=== PATIENT | female | born 1960 | race Caucasian/White ===

== ENCOUNTER 2017-12-30 12:15 | Day surgery (SDC) | payer OTHER ==
[~2017-12-30] VITALS: Ht 162.6 cm; Wt 69.0 kg
[~2017-12-30 12:15] MED LIST: ALIS150T PO; ASPI81CH; ATOR10; ATOR20 PO; CLARITIN10 MG PO; CODACE30 PO; Cardura2 MG PO; Cortef20 MG PO; DESL5; DILT120; DILT180ER PO; Doxazosin Mesyla2 MG PO; ERGO50000 PO; FEXO180; FLUO20; FURO20 PO; Flovent Diskus50 MCG; Fludrocortison0.1 MG PO; GABA300 PO; HYDCOR10 PO; HYDR10 PO; Humalog100 UNIT/1 ID; INSUL; MAGOXI400 PO; MEDR5 PO; NITR100CA PO; Neurontin 100100 MG GT; PROM25 PO; Prozac20 MG PO; Prozac40 MG PO; RAMI2.5; TRAN2; TRAZ100 PO
[2017-12-30] MEDS ORDERED: ASPI81CH PO (13:14)
[2017-12-30] MEDS ORDERED: SOLU CORTEF INJ (13:16)
[2017-12-30] MEDS ORDERED: Glucagon Emergen1 MG INJ (13:16)
== END 2017-12-30 17:37 | disposition home or self-care (01) ==
LOC: ORSCSDS 12:15
PROVIDERS: Orthopaedic Surgery
PROC: 0LN80ZZ Release Left Hand Tendon, Open Approach (ICD-10-PCS; principal; 2017-12-30 13:30)
PROC: 0JNK0ZZ Release Left Hand Subcutaneous Tissue and Fascia, Open Approach (ICD-10-PCS; principal; 2017-12-30 13:30)
DX: M72.0 Palmar fascial fibromatosis [Dupuytren] (principal); I10 Essential (primary) hypertension; E10.8 Type 1 diabetes mellitus with unspecified complications; E27.1 Primary adrenocortical insufficiency; Z87.891 Personal history of nicotine dependence; Z79.4 Long term (current) use of insulin; Z79.899 Other long term (current) drug therapy
CPT/HCPCS: 82947; J0690; J2250; J2370; J3010; J7120

== ENCOUNTER 2018-04-14 14:15 | Emergency (ER) | payer OTHER ==
[~2018-04-14] VITALS: Ht 167.6 cm; Wt 72.6 kg
[~2018-04-14 14:15] MED LIST changes: +ASPI81CH PO; +Glucagon Emergen1 MG INJ; +SOLU CORTEF INJ
[2018-04-14 14:53] LABS: BASOPHILS PERCENT AUTO 2 % (0-2); EOSINOPHILS ABSOLUTE AUTO 0.21 K/mm3 (0.00-0.68); EOSINOPHILS PERCENT AUTO 3 % (0-6); Hematocrit 36.1 % (33.0-51.0); Hemoglobin 13.2 g/dL (11.5-16.0); IMMATURE GRAN ABSOLUTE AUTO 0.01 K/mm3 (0.00-0.10); IMMATURE GRAN PERCENT AUTO 0 % (0-1); LYMPHOCYTES ABSOLUTE AUTO 1.94 K/mm3 (0.84-5.20); LYMPHOCYTES PERCENT AUTO 32 % (21-46); MONOCYTES ABSOLUTE AUTO 0.58 K/mm3 (0.16-1.47); MONOCYTES PERCENT AUTO 10 % (4-13); Mean Corpuscular HGB 32.3 pg (26.0-34.0); Mean Corpuscular HGB Conc 36.6 g/dL (31.5-36.5); Mean Corpuscular Volume 88 fL (80-100); Mean Platelet Volume 9.1 fL (9.1-12.4); NEUTROPHILS ABSOLUTE AUTO 3.27 K/mm3 (1.96-9.15); NEUTROPHILS PERCENT AUTO 54 % (41-73); Platelet Count 377 K/mm3 (150-400); RDW Coefficient Variation 11.4 % (11.7-14.2); RDW Standard Deviation 36.8 fL (35.1-46.3); Red Blood Cell Count 4.09 M/mm3 (3.80-5.20); White Blood Cell Count 6.11 K/mm3 (4.00-11.30)
[2018-04-14 15:21] LABS: Alanine Aminotransfer (ALT/SGP 27 U/L (12-78); Albumin, Blood 3.7 g/dL (3.4-5.0); Albumin/Globulin Ratio 0.9 (0.8-1.8); Alk Phos 106 U/L (50-136); Anion Gap 12 mmol/L (6-16); Aspartate Aminotrans (AST/SGOT 28 U/L (12-37); Bilirubin, Total 0.5 mg/dL (0.1-1.0); Blood Urea Nitrogen 20 mg/dL (8-24); Bun/Creatinine Ratio 29.3 (12.0-20.0); CO2, Blood 21 mmol/L (21-32); Calcium, Blood 9.1 mg/dL (8.5-10.1); Chloride, Blood 89 mmol/L (98-108); Creatinine, Blood 0.68 mg/dL (0.40-1.00); Globulin, Blood 4.3 g/dL (2.2-4.0); Glomerular Filtration Rate >60 (60-); Glucose, Blood 336 mg/dL (70-99); Potassium, Blood 4.1 mmol/L (3.5-5.5); Sodium, Blood 122 mmol/L (136-145)
[2018-04-14] MEDS ORDERED: Ativan1 MG PO (18:04)
== END 2018-04-14 18:40 | disposition home or self-care (01) ==
LOC: ER 14:15
PROVIDERS: Emergency Medicine
DX: F41.9 Anxiety disorder, unspecified (principal); E27.1 Primary adrenocortical insufficiency; I10 Essential (primary) hypertension; E11.9 Type 2 diabetes mellitus without complications; E03.9 Hypothyroidism, unspecified; F32.9 Major depressive disorder, single episode, unspecified; E78.00 Pure hypercholesterolemia, unspecified; Z88.6 Allergy status to analgesic agent; Z88.8 Allergy status to other drugs, medicaments and biological substances; Z88.5 Allergy status to narcotic agent; Z79.899 Other long term (current) drug therapy; Z79.4 Long term (current) use of insulin; Z79.82 Long term (current) use of aspirin; Z87.891 Personal history of nicotine dependence
CPT/HCPCS: 36415; 71046; 80053; 84484; 85025; 93005; 93010; 96361; 96374; 96375; 99285-25; J0360; J1720; J2060; J7030

== ENCOUNTER → 2018-07-07 | Outpatient (CLI) | payer OTHER ==
[~2018-07-07] MED LIST changes: +Ativan1 MG PO
[2018-07-07 08:26] LABS: BASOPHILS ABSOLUTE AUTO 0.09 K/mm3 (0.00-0.23); BASOPHILS PERCENT AUTO 2 % (0-2); EOSINOPHILS ABSOLUTE AUTO 0.26 K/mm3 (0.00-0.68); EOSINOPHILS PERCENT AUTO 5 % (0-6); Hematocrit 34.3 % (33.0-51.0); Hemoglobin 12.6 g/dL (11.5-16.0); IMMATURE GRAN ABSOLUTE AUTO 0.01 K/mm3 (0.00-0.10); IMMATURE GRAN PERCENT AUTO 0 % (0-1); LYMPHOCYTES ABSOLUTE AUTO 2.88 K/mm3 (0.84-5.20); LYMPHOCYTES PERCENT AUTO 51 % (21-46); MONOCYTES ABSOLUTE AUTO 0.56 K/mm3 (0.16-1.47); MONOCYTES PERCENT AUTO 10 % (4-13); Mean Corpuscular HGB 32.1 pg (26.0-34.0); Mean Corpuscular HGB Conc 36.7 g/dL (31.5-36.5); Mean Corpuscular Volume 87 fL (80-100); Mean Platelet Volume 9.5 fL (9.1-12.4); NEUTROPHILS ABSOLUTE AUTO 1.81 K/mm3 (1.96-9.15); NEUTROPHILS PERCENT AUTO 32 % (41-73); Platelet Count 340 K/mm3 (150-400); RDW Coefficient Variation 11.4 % (11.7-14.2); RDW Standard Deviation 36.9 fL (35.1-46.3); Red Blood Cell Count 3.93 M/mm3 (3.80-5.20); White Blood Cell Count 5.61 K/mm3 (4.00-11.30)
[2018-07-07 08:38] LABS: Alanine Aminotransfer (ALT/SGP 27 U/L (12-78); Albumin, Blood 3.6 g/dL (3.4-5.0); Albumin/Globulin Ratio 0.9 (0.8-1.8); Alk Phos 91 U/L (40-126); Anion Gap 9 mmol/L (6-16); Aspartate Aminotrans (AST/SGOT 24 U/L (12-37); Bilirubin, Total 0.3 mg/dL (0.1-1.0); Blood Urea Nitrogen 22 mg/dL (8-24); Bun/Creatinine Ratio 26.2 (12.0-20.0); CO2, Blood 27 mmol/L (21-32); Calcium, Blood 8.8 mg/dL (8.5-10.1); Chloride, Blood 88 mmol/L (98-108); Creatinine, Blood 0.84 mg/dL (0.40-1.00); Globulin, Blood 4.2 g/dL (2.2-4.0); Glomerular Filtration Rate >60 (60-); Glucose, Blood 88 mg/dL (70-99); Potassium, Blood 4.5 mmol/L (3.5-5.5); Sodium, Blood 124 mmol/L (136-145); Total Protein, Blood 7.8 g/dL (6.4-8.2)
== END | disposition home or self-care (01) ==
LOC: LAB SHORT 08:23 → LAB EV 08:23
PROVIDERS: Physician Assistant
DX: R11.2 Nausea with vomiting, unspecified (principal)
CPT/HCPCS: 80053; 83690; 85025; 87086

== ENCOUNTER 2020-05-01 18:31 | Emergency (ER) | payer OTHER ==
[~2020-05-01] VITALS: Ht 162.6 cm; Wt 70.3 kg
[~2020-05-01 18:31] MED LIST changes: -ASPI81CH PO; +Aspirin EC81 MG PO; +Glucagon Emergen1 MG IM; -Glucagon Emergen1 MG INJ; +ONDA4ODT MM; +SOLU CORTEF IM; -SOLU CORTEF INJ
[2020-05-01] MEDS ORDERED: HYDR10 PO (18:52)
[2020-05-01] MEDS ORDERED: HUMALOG100 UNIT/1 SC (18:54)
[2020-05-01] MEDS ORDERED: FUROSEMIDE20 MG PO (18:55)
[2020-05-01] MEDS ORDERED: FLUTICASONE PRO16 GM (18:55)
[2020-05-01] MEDS ORDERED: Hydrocortisone5 MG PO (18:56)
[2020-05-01] MEDS ORDERED: BASAGLAR K100 UNIT/1 SC (18:57)
[2020-05-01] MEDS ORDERED: LOSA25 PO (18:58)
[2020-05-01] MEDS ORDERED: Tiazac180 MG PO (19:01)
[2020-05-01] MEDS ORDERED: HYDCOR10 PO (19:05)
[2020-05-01 19:07] LABS: BASOPHILS ABSOLUTE AUTO 0.13 K/mm3 (0.00-0.23); BASOPHILS PERCENT AUTO 2 % (0-2); EOSINOPHILS ABSOLUTE AUTO 0.27 K/mm3 (0.00-0.68); EOSINOPHILS PERCENT AUTO 3 % (0-6); Hematocrit 32.6 % (33.0-51.0); Hemoglobin 11.4 g/dL (11.5-16.0); IMMATURE GRAN ABSOLUTE AUTO 0.02 K/mm3 (0.00-0.10); IMMATURE GRAN PERCENT AUTO 0 % (0-1); LYMPHOCYTES ABSOLUTE AUTO 3.05 K/mm3 (0.84-5.20); LYMPHOCYTES PERCENT AUTO 36 % (21-46); MONOCYTES ABSOLUTE AUTO 0.66 K/mm3 (0.16-1.47); MONOCYTES PERCENT AUTO 8 % (4-13); Mean Corpuscular HGB 31.5 pg (26.0-34.0); Mean Corpuscular Volume 90 fL (80-100); Mean Platelet Volume 9.3 fL (9.1-12.4); NEUTROPHILS ABSOLUTE AUTO 4.47 K/mm3 (1.96-9.15); NEUTROPHILS PERCENT AUTO 52 % (41-73); Platelet Count 382 K/mm3 (150-400); RDW Coefficient Variation 12.3 % (11.7-14.2); RDW Standard Deviation 40.4 fL (35.1-46.3); Red Blood Cell Count 3.62 M/mm3 (3.80-5.20)
[2020-05-01 19:35] LABS: Alanine Aminotransfer (ALT/SGP 33 U/L (12-78); Albumin, Blood 3.6 g/dL (3.4-5.0); Albumin/Globulin Ratio 0.9 (0.8-1.8); Alk Phos 73 U/L (50-136); Anion Gap 8 mmol/L (6-16); Aspartate Aminotrans (AST/SGOT 31 U/L (12-37); Bilirubin, Total 0.6 mg/dL (0.1-1.0); Blood Urea Nitrogen 14 mg/dL (8-24); Bun/Creatinine Ratio 22.9 (12.0-20.0); CO2, Blood 25 mmol/L (21-32); Calcium, Blood 8.7 mg/dL (8.5-10.1); Chloride, Blood 96 mmol/L (98-108); Creatinine, Blood 0.61 mg/dL (0.40-1.00); Globulin, Blood 3.8 g/dL (2.2-4.0); Glomerular Filtration Rate >60 (60-); Glucose, Blood 198 mg/dL (70-99); Potassium, Blood 3.7 mmol/L (3.5-5.5); Sodium, Blood 129 mmol/L (136-145); Total Protein, Blood 7.4 g/dL (6.4-8.2); Troponin I <0.015 ng/mL (0.000-0.040)
== END 2020-05-01 22:44 | disposition home or self-care (01) ==
LOC: ER 18:31
PROVIDERS: Emergency Medicine
DX: R07.9 Chest pain, unspecified (principal); R11.2 Nausea with vomiting, unspecified; I10 Essential (primary) hypertension; E11.9 Type 2 diabetes mellitus without complications; E03.9 Hypothyroidism, unspecified; F32.9 Major depressive disorder, single episode, unspecified; E78.00 Pure hypercholesterolemia, unspecified; Z88.8 Allergy status to other drugs, medicaments and biological substances; Z88.6 Allergy status to analgesic agent; Z88.5 Allergy status to narcotic agent; Z79.82 Long term (current) use of aspirin; Z79.4 Long term (current) use of insulin; Z79.899 Other long term (current) drug therapy; Z87.891 Personal history of nicotine dependence
CPT/HCPCS: 71046; 80053; 83880; 84484; 85025; 93005; 93010; 99285-25

== ENCOUNTER 2020-09-01 06:23 | Inpatient (IN) | payer OTHER ==
[~2020-09-01] VITALS: Ht 162.6 cm; Wt 65.3 kg
[~2020-09-01 06:23] MED LIST changes: +BASAGLAR K100 UNIT/1 SC; +FLUTICASONE PRO16 GM; +FUROSEMIDE20 MG PO; +HUMALOG100 UNIT/1 SC; +Hydrocortisone5 MG PO; +LOSA25 PO; +Tiazac180 MG PO
[2020-09-01 07:01] LABS: BASOPHILS ABSOLUTE AUTO 0.11 K/mm3 (0.00-0.23); BASOPHILS PERCENT AUTO 2 % (0-2); EOSINOPHILS PERCENT AUTO 6 % (0-6); Hematocrit 31.4 % (33.0-51.0); Hemoglobin 11.2 g/dL (11.5-16.0); IMMATURE GRAN ABSOLUTE AUTO 0.02 K/mm3 (0.00-0.10); IMMATURE GRAN PERCENT AUTO 0 % (0-1); LYMPHOCYTES ABSOLUTE AUTO 2.27 K/mm3 (0.84-5.20); LYMPHOCYTES PERCENT AUTO 32 % (21-46); MONOCYTES ABSOLUTE AUTO 0.61 K/mm3 (0.16-1.47); MONOCYTES PERCENT AUTO 9 % (4-13); Mean Corpuscular HGB 31.8 pg (26.0-34.0); Mean Corpuscular HGB Conc 35.7 g/dL (31.5-36.5); Mean Corpuscular Volume 89 fL (80-100); Mean Platelet Volume 9.3 fL (9.1-12.4); NEUTROPHILS ABSOLUTE AUTO 3.69 K/mm3 (1.96-9.15); NEUTROPHILS PERCENT AUTO 52 % (41-73); Platelet Count 382 K/mm3 (150-400); RDW Coefficient Variation 12.2 % (11.7-14.2); RDW Standard Deviation 39.6 fL (35.1-46.3); Red Blood Cell Count 3.52 M/mm3 (3.80-5.20)
[2020-09-01 07:19] LABS: Alanine Aminotransfer (ALT/SGP 24 U/L (12-78); Albumin, Blood 3.2 g/dL (3.4-5.0); Albumin/Globulin Ratio 0.8 (0.8-1.8); Alk Phos 72 U/L (50-136); Anion Gap 5 mmol/L (6-16); Aspartate Aminotrans (AST/SGOT 23 U/L (12-37); Bilirubin, Total 0.3 mg/dL (0.1-1.0); Blood Urea Nitrogen 13 mg/dL (8-24); Bun/Creatinine Ratio 23.5 (12.0-20.0); CO2, Blood 27 mmol/L (21-32); Calcium, Blood 8.6 mg/dL (8.5-10.1); Chloride, Blood 96 mmol/L (98-108); Creatinine, Blood 0.55 mg/dL (0.40-1.00); Globulin, Blood 3.9 g/dL (2.2-4.0); Glomerular Filtration Rate >60 (60-); Glucose, Blood 204 mg/dL (70-99); Potassium, Blood 3.8 mmol/L (3.5-5.5); Sodium, Blood 128 mmol/L (136-145); Total Protein, Blood 7.1 g/dL (6.4-8.2); Troponin I <0.015 ng/mL (0.000-0.040)
[2020-09-01 08:37] LABS: International Normalized Ratio 1.04; Prothrombin Time Results 11.1 Sec (9.7-11.5)
[2020-09-01 14:08] LABS: Influenza A, PCR NEGATIVE (NEGATIVE); Influenza B, PCR NEGATIVE (NEGATIVE); Resp Syncytial Virus, PCR NEGATIVE (NEGATIVE); SARS-Cov-2 (COVID-19) PCR, MMC NEGATIVE (NEGATIVE)
--- NOTE | 2020-09-01 17:25 | NUR ---
SHIFT SUMMARY PT ARRIVED FROM [facility] AT APPROXIMATELY 1615 AFTER HAVING A RAC STENT PLACED. TR BAND AND ARM BOARD IN PLACE; SCANT AMOUNT OF DRAINAGE AT THE SITE, BUT THE AMOUNT HAS NOT INCREASED SINCE ARRIVING IN PCU. PT DENIES CHEST PAIN AND DISCOMFORT. PT ON RA, VS STABLE, STRONG PULSES. PT ABLE TO WALK SBA TO THE BATHROOM. PT RESTING IN BED AT THIS TIME
--- NOTE | 2020-09-01 18:38 | NUR ---
CHEST PAIN PT REPORTED CHEST PRESSURE AT APPROXIMATELY 1740. BP WAS ELEVATED, PT ALSO REPORTED HAVING A HEADACHE. THE 1400 DOSE OF APRESOLINE WAS HELD PREVIOUSLY; DUE TO ELEVATED BP THE PT WAS GIVEN THE APRESOLINE. WHEN RETURING TO THE ROOM SEVERAL MINUTES LATER, PT REPORTED IT FEELING WORSE, RATING THE PAIN AT A 5. BP WAS STILL ELEVATED SO A SINGLE DOSE OF NITRO WAS GIVEN. PT'S BP DROPPED AND NO FURTHER NITRO WAS ADMINISTERED. PT REPORTED IT HELPING A LITTLE. THIS RN EXPLAINED THAT HOPEFULLY THE BP WOULD LEVEL OUT AND THE HEADACHE WOULD RESOLVE. BP WILL BE RECHECKED. THIS RN EXPLAINED THAT IF IT DID NOT RESOLVE WITH THE APRESOLINE AND NITRO THAT THE DOCTOR WOULD BE CALLED FOR ADDITIONAL MEDICATION SUCH PEPCID WHICH WAS REPORTED RESOLVING HER CHEST PAIN IN THE ER, PRIOR TO THE ANGIO
[2020-09-02 04:49] LABS: Hematocrit 31.3 % (33.0-51.0); Hemoglobin 10.9 g/dL (11.5-16.0); Mean Corpuscular HGB 31.5 pg (26.0-34.0); Mean Corpuscular HGB Conc 34.8 g/dL (31.5-36.5); Mean Corpuscular Volume 91 fL (80-100); Mean Platelet Volume 9.5 fL (9.1-12.4); Platelet Count 368 K/mm3 (150-400); RDW Coefficient Variation 12.3 % (11.7-14.2); RDW Standard Deviation 40.4 fL (35.1-46.3); Red Blood Cell Count 3.46 M/mm3 (3.80-5.20); White Blood Cell Count 5.44 K/mm3 (4.00-11.30)
[2020-09-02 05:47] LABS: Anion Gap 7 mmol/L (6-16); Blood Urea Nitrogen 10 mg/dL (8-24); Bun/Creatinine Ratio 16.8 (12.0-20.0); CO2, Blood 25 mmol/L (21-32); Calcium, Blood 8.4 mg/dL (8.5-10.1); Chloride, Blood 100 mmol/L (98-108); Glomerular Filtration Rate >60 (60-); Glucose, Blood 164 mg/dL (70-99); Potassium, Blood 3.7 mmol/L (3.5-5.5); Sodium, Blood 132 mmol/L (136-145)
--- NOTE | 2020-09-02 06:48 | NUR ---
SHIFT SUMMARY PT A&O X4; PLEASANT & COMPLIANT W/ CARE; VSS; TR BAND RECOVERED W/ TEGADERM AND ARM BOARD IN PLACE; FINGERS WARM TO TOUCH W/ FULL ROM; PT C/O CHEST PAIN 5 OF 10 APPROXIMATELY @ 2300; DISCRIBED STABBING STERNAL PAIN; PT INDICATED NO RELIEF FROM NITRO PREVIOUSLY; JHON YANG WAS NOTIFIED; NEW ORDER FOR FENTANYL WAS GIVEN; PT STATED MUCH IMPROVEMENT; O2 SATS >93 ON RA; PT SLEPT SEVERAL HOURS; CALL LIGHT IN PLACE; BED IN LOWEST POSITION; WILL CONTINUE TO MONITOR CLOSELY UNTIL HAND OFF TO DAY SHIFT RN.
--- NOTE | 2020-09-02 17:30 | NUR ---
SHIFT SUMMARY: PT CONTINUES A&OX4, RESP EVEN AND UNLABORED, O2 SATS >92% ON RA. MONITOR SHOWS SINUS RHYTHM, PT C/O INCREASING CHEST PAIN T/OUT DAY, DESCRIBES PAIN SHARP ACHE THAT IS DIFFERENT THAN PRESSURE THAT LED HER TO SEEK CARE, PAIN IS IN LEFT CHEST AREA. PT TREATED WITH HEATING PAD AND FENTANYL PER EMAR, PT REPORTS IMPROVEMENT TO PAIN. PT HAS BEEN HYPERTENSIVE, VS SHOW DOWNWARD TREND OF BP, BUT PLAN IS TO KEEP PT OVERNIGHT TO ENSURE PAIN AND BP ARE IMPROVING PRIOR TO DC. PT HAS BEEN FOUND TO BE SELF MEDICATING WITH HER HOME MEDS IN ROOM. EDUCATION PROVIDED RE: NEED TO HAVE STAFF PROVIDE MEDICATION TO ENSURE ACCURATE DOSING AND DOCUMENTATION OF MEDICATION. PT V/U. PT ENCOURAGED TO SEND MEDICATIONS HOME WITH HER . WILL CONTINUE TO MONITOR AND TREAT ACCORDINGLY UNTIL CHANGE OF SHIFT.
[2020-09-03 04:30] LABS: Hematocrit 27.5 % (33.0-51.0); Hemoglobin 9.8 g/dL (11.5-16.0)
[2020-09-03 04:48] LABS: Anion Gap 5 mmol/L (6-16); Blood Urea Nitrogen 12 mg/dL (8-24); Bun/Creatinine Ratio 20.2 (12.0-20.0); CO2, Blood 27 mmol/L (21-32); Calcium, Blood 8.3 mg/dL (8.5-10.1); Chloride, Blood 98 mmol/L (98-108); Glomerular Filtration Rate >60 (60-); Glucose, Blood 103 mg/dL (70-99); Potassium, Blood 3.5 mmol/L (3.5-5.5); Sodium, Blood 130 mmol/L (136-145)
--- NOTE | 2020-09-03 05:37 | NUR ---
SHIFT SUMMARY PT REPORTED VERY MINIMAL PAIN IN HER CHEST T/O SHIFT. PAIN WAS WELL CONTROLLED WITH SCHEDULED MEDICATIONS AND HEAT PAD. PT REPORTED NOT WANTING ANY PRN PAIN MEDICATIONS. VITALS WERE STABLE. BP 144 SYSTOLIC AT START OF SHIFT DOWN TO 117 BY AM. HR 70-80'S. O2 SATS >95% ON ROOM AIR. R RADIAL SITE WAS WNL AND UNCHANGED T/O SHIFT. PT ON OWN INSULIN PUMP BG STABLE 100'S. PT HAD A QUIET UNEVENTFUL NIGHT WITH GOOD IMPROVEMENT IN PAIN AND BP.
[2020-09-03] MEDS ORDERED: CLOP75 PO (11:29)
[2020-09-03] MEDS ORDERED: Isosorbide Mono30 MG PO (11:32)
[2020-09-03] MEDS ORDERED: NITR.4SL SL (11:36)
--- NOTE | 2020-09-03 13:05 | NUR ---
PT DISCHARGED TO HOME WITH DISCHARGE ORDERS. PT WAS ABLE TO AMBULATE AROUND THE UNIT WITHOUT C/O CHEST PAINS, VITALS STABLE, AFEBRILE. RIGHT RADIAL ACCESS SITE WITH OPSITE DRESSING ON INTACT, NO BLEEDING/HEMATOMA NOTED. NEW MEDICATIONS AND POST ANGIO INSTRUCTIONS DISCLOSED WITH THE PT SO FF-UP APPTS, PT VERBALIZED UNDERSTANDING. IV ACCESS PULLED OUT, INSULIN PUMP ON RLQ ABD FULLY FUNCTIONING. PT DID TAKE HER HOME MEDS THIS AM, NEW MEDS WAS GIVEN BY THIS RN. NO OTHER ISSUES ENCOUNTERED FOR THE SHIFT. 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
[2020-09-04] MEDS ORDERED: FLUDROCORTISON0.1 MG PO (13:16)
[2020-09-04] MEDS ORDERED: PEPCID40 MG PO (17:17)
== END 2020-09-03 11:58 | disposition home or self-care (01) | DRG 247 ==
LOC: ER 06:23 → ERHOLD 06:24 → PCU 06:24 → ICUW 16:21 → PCU 16:37
PROVIDERS: Emergency Medicine; Internal Medicine; Nurse Practitioner Acute Care; ADMIT Internal Medicine
PROC: 4A023N7 Measurement of Cardiac Sampling and Pressure, Left Heart, Percutaneous Approach (ICD-10-PCS; principal; 2020-09-02)
PROC: 027135Z Dilation of Coronary Artery, Two Arteries with Two Drug-eluting Intraluminal Devices, Percutaneous Approach (ICD-10-PCS; 2020-09-02)
PROC: B211YZZ Fluoroscopy of Multiple Coronary Arteries using Other Contrast (ICD-10-PCS; 2020-09-02)
DX: I25.110 Atherosclerotic heart disease of native coronary artery with unstable angina pectoris (principal); E27.1 Primary adrenocortical insufficiency; E87.1 Hypo-osmolality and hyponatremia; I10 Essential (primary) hypertension; E78.5 Hyperlipidemia, unspecified; F32.9 Major depressive disorder, single episode, unspecified; E11.9 Type 2 diabetes mellitus without complications; Z79.4 Long term (current) use of insulin; I35.0 Nonrheumatic aortic (valve) stenosis; D64.9 Anemia, unspecified; Z96.41 Presence of insulin pump (external) (internal); Z85.828 Personal history of other malignant neoplasm of skin; Z90.89 Acquired absence of other organs; Z98.891 History of uterine scar from previous surgery
CPT/HCPCS: 0241U; 36415; 71046; 76937; 80048; 80053; 82947; 83690; 84484; 85014; 85018; 85025; 85027; 85347; 85610; 85730; 93005; 93010; 93306; 93454; 96365; 96366; 96375; 96376; 99152; 99153; 99285-25; A9270; C1725; C1769; C1874; C1887; C1894; C9600; G0378; J1644; J2250; J2405; J3010; J3246; J7030; J7042; J7050; Q9967

== ENCOUNTER 2020-09-04 09:03 | Observation (INO) | payer OTHER ==
[~2020-09-04] VITALS: Ht 162.6 cm; Wt 68.0 kg
[~2020-09-04 09:03] MED LIST changes: +CLOP75 PO; +Isosorbide Mono30 MG PO; +NITR.4SL SL
[2020-09-04 09:42] LABS: BASOPHILS ABSOLUTE AUTO 0.08 K/mm3 (0.00-0.23); BASOPHILS PERCENT AUTO 2 % (0-2); EOSINOPHILS ABSOLUTE AUTO 0.25 K/mm3 (0.00-0.68); EOSINOPHILS PERCENT AUTO 5 % (0-6); Hematocrit 29.7 % (33.0-51.0); Hemoglobin 10.4 g/dL (11.5-16.0); IMMATURE GRAN ABSOLUTE AUTO 0.01 K/mm3 (0.00-0.10); IMMATURE GRAN PERCENT AUTO 0 % (0-1); LYMPHOCYTES ABSOLUTE AUTO 2.49 K/mm3 (0.84-5.20); LYMPHOCYTES PERCENT AUTO 49 % (21-46); MONOCYTES ABSOLUTE AUTO 0.56 K/mm3 (0.16-1.47); MONOCYTES PERCENT AUTO 11 % (4-13); Mean Corpuscular HGB 31.7 pg (26.0-34.0); Mean Corpuscular Volume 91 fL (80-100); Mean Platelet Volume 9.6 fL (9.1-12.4); NEUTROPHILS ABSOLUTE AUTO 1.72 K/mm3 (1.96-9.15); NEUTROPHILS PERCENT AUTO 34 % (41-73); Platelet Count 360 K/mm3 (150-400); RDW Coefficient Variation 11.9 % (11.7-14.2); RDW Standard Deviation 39.7 fL (35.1-46.3); Red Blood Cell Count 3.28 M/mm3 (3.80-5.20); White Blood Cell Count 5.11 K/mm3 (4.00-11.30)
[2020-09-04 09:58] LABS: Alanine Aminotransfer (ALT/SGP 23 U/L (12-78); Albumin, Blood 3.2 g/dL (3.4-5.0); Albumin/Globulin Ratio 0.9 (0.8-1.8); Alk Phos 60 U/L (50-136); Anion Gap 6 mmol/L (6-16); Aspartate Aminotrans (AST/SGOT 24 U/L (12-37); Bilirubin, Total 0.3 mg/dL (0.1-1.0); Blood Urea Nitrogen 8 mg/dL (8-24); Bun/Creatinine Ratio 15.1 (12.0-20.0); CO2, Blood 25 mmol/L (21-32); Calcium, Blood 8.2 mg/dL (8.5-10.1); Chloride, Blood 101 mmol/L (98-108); Creatinine, Blood 0.53 mg/dL (0.40-1.00); Globulin, Blood 3.4 g/dL (2.2-4.0); Glomerular Filtration Rate >60 (60-); Glucose, Blood 164 mg/dL (70-99); Potassium, Blood 3.7 mmol/L (3.5-5.5); Sodium, Blood 132 mmol/L (136-145); Total Protein, Blood 6.6 g/dL (6.4-8.2); Troponin I <0.015 ng/mL (0.000-0.040)
[2020-09-04] MEDS ORDERED: FLUDROCORTISON0.1 MG PO (13:16)
[2020-09-04] MEDS ORDERED: PEPCID40 MG PO (17:17)
== END 2020-09-04 16:12 | disposition home or self-care (01) ==
LOC: ER 09:03 → ERHOLD 09:04
PROVIDERS: Emergency Medicine; ADMIT Hospitalist
DX: R07.9 Chest pain, unspecified (principal); E27.1 Primary adrenocortical insufficiency; D64.9 Anemia, unspecified; I25.10 Atherosclerotic heart disease of native coronary artery without angina pectoris; E10.9 Type 1 diabetes mellitus without complications; E87.1 Hypo-osmolality and hyponatremia; I10 Essential (primary) hypertension; E78.5 Hyperlipidemia, unspecified; F32.9 Major depressive disorder, single episode, unspecified; F17.290 Nicotine dependence, other tobacco product, uncomplicated; Z95.5 Presence of coronary angioplasty implant and graft; Z79.02 Long term (current) use of antithrombotics/antiplatelets; Z79.82 Long term (current) use of aspirin; Z79.4 Long term (current) use of insulin; Z88.5 Allergy status to narcotic agent; Z88.8 Allergy status to other drugs, medicaments and biological substances
CPT/HCPCS: 36415; 71045; 80053; 83690; 83880; 84484; 85025; 93005; 93010; 96374; 96375; 99285-25; A9270; G0378; J1170; J2405

== ENCOUNTER 2020-10-25 20:52 | Emergency (ER) | payer OTHER ==
[~2020-10-25] VITALS: Ht 162.6 cm; Wt 150.0 kg
[~2020-10-25 20:52] MED LIST changes: +FLUDROCORTISON0.1 MG PO; +PEPCID40 MG PO
== END 2020-10-25 21:35 | disposition home or self-care (01) ==
LOC: ER 20:52
DX: T16.1XXA Foreign body in right ear, initial encounter (principal); Z79.82 Long term (current) use of aspirin; Z79.4 Long term (current) use of insulin; Z79.02 Long term (current) use of antithrombotics/antiplatelets; Z79.899 Other long term (current) drug therapy; Z88.6 Allergy status to analgesic agent; Z88.5 Allergy status to narcotic agent
CPT/HCPCS: 69200; 99282-25

== ENCOUNTER → 2021-03-10 | Outpatient (CLI) | payer OTHER ==
[2021-03-15 11:10] LABS: HPV 16 Negative (Negative); HPV 18 Negative (Negative); HPV OTHER HR TYPES Negative (Negative)
== END | disposition home or self-care (01) ==
LOC: LAB 11:45 → LAB SHORT 11:45
PROVIDERS: Internal Medicine
DX: Z12.4 Encounter for screening for malignant neoplasm of cervix (principal)
CPT/HCPCS: 87624; G0145

== ENCOUNTER → 2022-02-27 | Outpatient (CLI) | payer OTHER | END | disposition home or self-care (01) | LOC: LAB SHORT 19:00 → LAB 19:00 | DX: I10 Essential (primary) hypertension (principal); E27.1 Primary adrenocortical insufficiency | CPT/HCPCS: 81050 ==

== ENCOUNTER 2022-06-04 11:04 | Observation (INO) | payer OTHER ==
[~2022-06-04] VITALS: Ht 162.6 cm; Wt 63.7 kg
[~2022-06-04 11:04] MED LIST changes: -ATOR20 PO; +ATOR40TA PO; +HYDRA50 PO; +ISOSORBIDE MONO60 MG PO; -Isosorbide Mono30 MG PO; -LOSA25 PO; +LOSARTAN POTAS100 M1 PO
[2022-06-04 11:51] LABS: BASOPHILS ABSOLUTE AUTO 0.05 K/mm3 (0.00-0.23); BASOPHILS PERCENT AUTO 1 % (0-2); EOSINOPHILS ABSOLUTE AUTO 0.14 K/mm3 (0.00-0.68); EOSINOPHILS PERCENT AUTO 2 % (0-6); Hematocrit 32.1 % (33.0-51.0); Hemoglobin 11.4 g/dL (11.5-16.0); IMMATURE GRAN ABSOLUTE AUTO 0.03 K/mm3 (0.00-0.10); IMMATURE GRAN PERCENT AUTO 0 % (0-1); LYMPHOCYTES PERCENT AUTO 19 % (21-46); MONOCYTES ABSOLUTE AUTO 0.61 K/mm3 (0.16-1.47); MONOCYTES PERCENT AUTO 8 % (4-13); Mean Corpuscular HGB 32.2 pg (26.0-34.0); Mean Corpuscular HGB Conc 35.5 g/dL (31.5-36.5); Mean Corpuscular Volume 91 fL (80-100); Mean Platelet Volume 9.9 fL (9.1-12.4); NEUTROPHILS ABSOLUTE AUTO 5.02 K/mm3 (1.96-9.15); NEUTROPHILS PERCENT AUTO 69 % (41-73); Platelet Count 353 K/mm3 (150-400); RDW Coefficient Variation 11.9 % (11.7-14.2); RDW Standard Deviation 39.9 fL (35.1-46.3); Red Blood Cell Count 3.54 M/mm3 (3.80-5.20); White Blood Cell Count 7.25 K/mm3 (4.00-11.30)
[2022-06-04 12:17] LABS: Albumin, Blood 3.3 g/dL (3.4-5.0); Albumin/Globulin Ratio 0.8 (0.8-1.8); Bilirubin, Total 0.8 mg/dL (0.1-1.0); Bun/Creatinine Ratio 30.7 (12.0-20.0); Calcium, Blood 9.1 mg/dL (8.5-10.1); Creatinine, Blood 0.72 mg/dL (0.40-1.00); Potassium, Blood 4.6 mmol/L (3.5-5.5); Total Protein, Blood 7.3 g/dL (6.4-8.2)
[2022-06-04 12:24] LABS: Source, Urine Clean Catch
[2022-06-04 12:36] LABS: Influenza A, PCR NEGATIVE (NEGATIVE); Influenza B, PCR NEGATIVE (NEGATIVE); Resp Syncytial Virus, PCR NEGATIVE (NEGATIVE); SARS-Cov-2 (COVID-19) PCR, MMC NEGATIVE (NEGATIVE)
[2022-06-04 12:42] LABS: Appearance, Urine Clear (Clear); Bilirubin, Urine Neg (Neg); Blood, Urine Neg (Neg); Color, Urine Yellow (P-Yellow); Glucose Qualitative, Urine 4+ (Neg); Ketones, Urine 4+ (Neg); Leukocyte Esterase, Urine Neg (Neg); Nitrite, Urine Neg (Neg); Protein, Urine Neg (Neg); Urobilinogen, Urine NORM (Normal)
[2022-06-04 14:19] LABS: Bicarbonate Venous 22.4 mmol/L (24.0-30.0); PCO2 Venous 33.2 mmHg (38-42); pH Blood Venous 7.42 (7.34-7.37)
[2022-06-04 16:39] LABS: Bun/Creatinine Ratio 28.8 (12.0-20.0); Calcium, Blood 8.4 mg/dL (8.5-10.1); Creatinine, Blood 0.52 mg/dL (0.40-1.00); Potassium, Blood 4.1 mmol/L (3.5-5.5)
--- NOTE | 2022-06-04 18:03 | NUR ---
ADMIT PT ADMITTED TO FLOOR. ORIENTED TO ROOM. CALL LIGHT IN REACH. AT BEDSIDE. LS CLEAR. DENIES SOB, CP, N/V AT THIS TIME. PT DENIES PAIN AT THIS TIME. VS REVIEWED. PT A&OX4. IND IN ROOM.
[2022-06-04 20:20] LABS: Bun/Creatinine Ratio 22.4 (12.0-20.0); Calcium, Blood 8.4 mg/dL (8.5-10.1); Creatinine, Blood 0.58 mg/dL (0.40-1.00); Potassium, Blood 3.8 mmol/L (3.5-5.5)
--- NOTE | 2022-06-05 04:19 | NUR ---
SHIFT SUMMARY PATIENT IS ALERT AND ORIENTED. PATIENT HAS HAD NO ACUTE EVENTS THIS SHIFT. PATIENT WAS ADMITTED YESTERDAY AFTERNOON FOR DKA. PATIENT HAS HAD BLOOD SUGARS LOWERING GENTLY TO 179 CBG AT 0400. LR INFUSING AT 150/HR. VITAL SIGNS REVIEWED. PATIENT HAS HAD NO COMPLAINTS OF NAUSEA, VOMITTING, SOB OR PAIN THIS SHIFT. BED IN LOCKED AND LOWEST POSITION. CALL LIGHT IN PLACE. WILL MONITOR UNTIL SHIFT CHANGE.
[2022-06-05] MEDS ORDERED: Pentoxifylline400 MG PO (14:44)
[2022-06-05] MEDS ORDERED: FUROSEMIDE20 MG PO (14:49)
--- NOTE | 2022-06-05 17:00 | NUR ---
DISCHARGE PT A&OX4, SPOUSE @ BEDSIDE DURING DC INSTRUCTION. PT PROVIDED W/ WRITTEN AND VERBAL DIRECTION, DR. Alvarez CONTACTED TO [facility] FOR DC FOLLOW UP ON 06/11/22. IV DCED, TELE DCED. PT ESCORTED OUT VIA WC TO [facility], SPOUSE PROVIDED TRANSPORT.
== END 2022-06-05 16:49 | disposition home or self-care (01) ==
LOC: ER 11:04 → ERHOLD 11:05 → MEDS 17:44
PROVIDERS: Nurse Practitioner Acute Care; Physician Assistant; ADMIT Internal Medicine
DX: E10.10 Type 1 diabetes mellitus with ketoacidosis without coma (principal); E27.1 Primary adrenocortical insufficiency; I10 Essential (primary) hypertension; E78.5 Hyperlipidemia, unspecified; K57.30 Diverticulosis of large intestine without perforation or abscess without bleeding; I25.10 Atherosclerotic heart disease of native coronary artery without angina pectoris; Z79.82 Long term (current) use of aspirin; Z79.02 Long term (current) use of antithrombotics/antiplatelets; Z79.4 Long term (current) use of insulin; Z88.5 Allergy status to narcotic agent; Z88.8 Allergy status to other drugs, medicaments and biological substances
CPT/HCPCS: 0241U; 36415; 80048; 80053; 81003; 82010; 82803; 82947; 83690; 85025; 96361; 96372; A9270; G0378; J1650; J1815; J7030; J7120

== ENCOUNTER 2022-09-22 18:21 | Emergency (ER) | payer OTHER ==
[~2022-09-22] VITALS: Ht 162.6 cm; Wt 68.0 kg
[~2022-09-22 18:21] MED LIST changes: +ISOSORBIDE MONO30 MG PO; -ISOSORBIDE MONO60 MG PO; +Pentoxifylline400 MG PO; +SENN187 PO
[2022-09-22 19:21] LABS: BASOPHILS ABSOLUTE AUTO 0.06 K/mm3 (0.00-0.23); BASOPHILS PERCENT AUTO 1 % (0-2); EOSINOPHILS ABSOLUTE AUTO 0.25 K/mm3 (0.00-0.68); EOSINOPHILS PERCENT AUTO 4 % (0-6); Hematocrit 31.2 % (33.0-51.0); Hemoglobin 11.2 g/dL (11.5-16.0); IMMATURE GRAN ABSOLUTE AUTO 0.01 K/mm3 (0.00-0.10); IMMATURE GRAN PERCENT AUTO 0 % (0-1); LYMPHOCYTES PERCENT AUTO 27 % (21-46); MONOCYTES ABSOLUTE AUTO 0.76 K/mm3 (0.16-1.47); MONOCYTES PERCENT AUTO 12 % (4-13); Mean Corpuscular HGB 32.9 pg (26.0-34.0); Mean Corpuscular HGB Conc 35.9 g/dL (31.5-36.5); Mean Corpuscular Volume 92 fL (80-100); Mean Platelet Volume 9.3 fL (9.1-12.4); NEUTROPHILS ABSOLUTE AUTO 3.43 K/mm3 (1.96-9.15); NEUTROPHILS PERCENT AUTO 55 % (41-73); Platelet Count 333 K/mm3 (150-400); RDW Coefficient Variation 12.4 % (11.7-14.2); RDW Standard Deviation 41.6 fL (35.1-46.3); White Blood Cell Count 6.21 K/mm3 (4.00-11.30)
[2022-09-22 19:34] LABS: Source, Urine Clean Catch
[2022-09-22 19:34] LABS: Influenza A, PCR NEGATIVE (NEGATIVE); Influenza B, PCR NEGATIVE (NEGATIVE); Resp Syncytial Virus, PCR NEGATIVE (NEGATIVE); SARS-Cov-2 (COVID-19) PCR, MMC NEGATIVE (NEGATIVE)
[2022-09-22 19:42] LABS: Albumin, Blood 3.3 g/dL (3.4-5.0); Bilirubin, Total 0.5 mg/dL (0.1-1.0); Calcium, Blood 8.3 mg/dL (8.5-10.1); Creatinine, Blood 0.5 mg/dL (0.40-1.00); Globulin, Blood 3.3 g/dL (2.2-4.0); Potassium, Blood 3.4 mmol/L (3.5-5.5); Total Protein, Blood 6.6 g/dL (6.4-8.2)
[2022-09-22 19:46] LABS: Appearance, Urine Clear (Clear); Bilirubin, Urine Neg (Neg); Blood, Urine Neg (Neg); Glucose Qualitative, Urine 4+ (Neg); Ketones, Urine Neg (Neg); Leukocyte Esterase, Urine 1+ (Neg); Nitrite, Urine Neg (Neg); Protein, Urine 1+ (Neg); Urobilinogen, Urine NORM (Normal)
[2022-09-22 20:12] LABS: Bacteria Rare /hpf; Color, Urine Pale Yellow (P-Yellow); Red Blood Cells, Urine Not Seen /hpf (0-2); Squamous Epithelial Cells Not Seen /hpf (Few); White Blood Cells, Urine 0-2 /hpf (0-5)
[2022-09-22] MEDS ORDERED: DIPATR PO (22:02)
[2022-09-22] MEDS ORDERED: ONDA4ODT MM (22:02)
== END 2022-09-22 22:10 | disposition home or self-care (01) ==
LOC: ER 18:21
PROVIDERS: Emergency Medicine
DX: R19.7 Diarrhea, unspecified (principal); R11.10 Vomiting, unspecified; R10.9 Unspecified abdominal pain; E10.9 Type 1 diabetes mellitus without complications; I10 Essential (primary) hypertension; F17.290 Nicotine dependence, other tobacco product, uncomplicated; Z88.8 Allergy status to other drugs, medicaments and biological substances; Z88.5 Allergy status to narcotic agent; Z79.82 Long term (current) use of aspirin; Z79.4 Long term (current) use of insulin; Z79.899 Other long term (current) drug therapy; Z20.822 Contact with and (suspected) exposure to COVID-19
CPT/HCPCS: 0241U; 36415; 74177; 80053; 81001; 83690; 85025; 93005; 93010; 96361; 96374-59; 96375; 99284-25; J2270; J2405; J7030; Q9967

== ENCOUNTER 2022-10-02 12:20 | Emergency (ER) | payer OTHER ==
[~2022-10-02] VITALS: Ht 162.6 cm; Wt 63.5 kg
[~2022-10-02 12:20] MED LIST changes: +DIPATR PO
[2022-10-02 12:59] LABS: Bicarbonate Venous 23.4 mmol/L (24.0-30.0); PCO2 Venous 30.7 mmHg (38-42); pH Blood Venous 7.46 (7.34-7.37)
[2022-10-02 13:11] LABS: BASOPHILS ABSOLUTE AUTO 0.09 K/mm3 (0.00-0.23); BASOPHILS PERCENT AUTO 2 % (0-2); EOSINOPHILS ABSOLUTE AUTO 0.16 K/mm3 (0.00-0.68); EOSINOPHILS PERCENT AUTO 3 % (0-6); Hemoglobin 12.3 g/dL (11.5-16.0); IMMATURE GRAN ABSOLUTE AUTO 0.02 K/mm3 (0.00-0.10); IMMATURE GRAN PERCENT AUTO 0 % (0-1); LYMPHOCYTES ABSOLUTE AUTO 1.83 K/mm3 (0.84-5.20); LYMPHOCYTES PERCENT AUTO 36 % (21-46); MONOCYTES ABSOLUTE AUTO 0.63 K/mm3 (0.16-1.47); MONOCYTES PERCENT AUTO 13 % (4-13); Mean Corpuscular HGB 32.8 pg (26.0-34.0); Mean Corpuscular HGB Conc 37.3 g/dL (31.5-36.5); Mean Corpuscular Volume 88 fL (80-100); Mean Platelet Volume 9.6 fL (9.1-12.4); NEUTROPHILS ABSOLUTE AUTO 2.32 K/mm3 (1.96-9.15); NEUTROPHILS PERCENT AUTO 46 % (41-73); Platelet Count 410 K/mm3 (150-400); RDW Coefficient Variation 11.6 % (11.7-14.2); RDW Standard Deviation 37.2 fL (35.1-46.3); Red Blood Cell Count 3.75 M/mm3 (3.80-5.20); White Blood Cell Count 5.05 K/mm3 (4.00-11.30)
[2022-10-02 13:33] LABS: Albumin, Blood 3.5 g/dL (3.4-5.0); Albumin/Globulin Ratio 0.9 (0.8-1.8); Bilirubin, Total 0.5 mg/dL (0.1-1.0); Bun/Creatinine Ratio 22.8 (12.0-20.0); Calcium, Blood 8.7 mg/dL (8.5-10.1); Creatinine, Blood 0.79 mg/dL (0.40-1.00); Globulin, Blood 3.7 g/dL (2.2-4.0); Potassium, Blood 4.1 mmol/L (3.5-5.5); Total Protein, Blood 7.2 g/dL (6.4-8.2)
[2022-10-02 15:44] LABS: Source, Urine Clean Catch
[2022-10-02 15:56] LABS: Appearance, Urine Clear (Clear); Bilirubin, Urine Neg (Neg); Blood, Urine Neg (Neg); Color, Urine Yellow (P-Yellow); Glucose Qualitative, Urine 3+ (Neg); Ketones, Urine 1+ (Neg); Leukocyte Esterase, Urine 1+ (Neg); Nitrite, Urine Neg (Neg); Protein, Urine 2+ (Neg); Specific Gravity, Urine 1.015 (1.003-1.022); Urobilinogen, Urine NORM (Normal)
[2022-10-02 16:05] LABS: Bacteria Few /hpf; Red Blood Cells, Urine 0-2 /hpf (0-2); Squamous Epithelial Cells Few /hpf (Few); White Blood Cells, Urine 0-2 /hpf (0-5)
[2022-10-02 17:05] LABS: Calcium, Ionized (POC) 1.11 mmol/L (1.10-1.46); Chloride (POC) 94 mmol/L (98-108); Creatinine (POC) 0.5 mg/dL (0.6-1.0); Glucose (ISTAT POC) 181 mg/dL (70-99); Hemoglobin (POC) 10.9 g/dL (12.0-16.0); Potassium (POC) 4.1 mmol/L (3.5-5.5); Sodium (POC) 125 mmol/L (135-148); Total CO2 (POC) 20 mmol/L (21-32)
[2022-10-02] MEDS ORDERED: ONDA4ODT SL (17:22)
[2022-10-02 18:36] LABS: Influenza A, PCR NEGATIVE (NEGATIVE); Influenza B, PCR NEGATIVE (NEGATIVE); Resp Syncytial Virus, PCR NEGATIVE (NEGATIVE); SARS-Cov-2 (COVID-19) PCR, MMC NEGATIVE (NEGATIVE)
== END 2022-10-02 17:30 | disposition home or self-care (01) ==
LOC: ER 12:20
PROVIDERS: Emergency Medicine
DX: E10.65 Type 1 diabetes mellitus with hyperglycemia (principal); E87.1 Hypo-osmolality and hyponatremia; R05.9 Cough, unspecified; I10 Essential (primary) hypertension; Z88.8 Allergy status to other drugs, medicaments and biological substances; Z88.5 Allergy status to narcotic agent; Z79.899 Other long term (current) drug therapy; Z79.82 Long term (current) use of aspirin; Z79.4 Long term (current) use of insulin
CPT/HCPCS: 0241U; 36415; 71046; 80047; 80053; 81001; 82803; 82947; 85014; 85025; 87077; 87086; 87186; 93005; 93010; 96360; 99284-25; J7030

== ENCOUNTER → 2022-10-08 | Outpatient (CLI) | payer OTHER ==
[~2022-10-08] MED LIST changes: +ONDA4ODT SL
[2022-10-08 15:59] LABS: Albumin, Blood 3.4 g/dL (3.4-5.0); Albumin/Globulin Ratio 0.9 (0.8-1.8); Bilirubin, Total 0.5 mg/dL (0.1-1.0); Bun/Creatinine Ratio 37.3 (12.0-20.0); Calcium, Blood 9.1 mg/dL (8.5-10.1); Creatinine, Blood 0.51 mg/dL (0.40-1.00); Globulin, Blood 3.7 g/dL (2.2-4.0); Potassium, Blood 3.6 mmol/L (3.5-5.5); Total Protein, Blood 7.1 g/dL (6.4-8.2)
== END | disposition home or self-care (01) ==
LOC: LAB SHORT 14:50 → LAB 14:50
PROVIDERS: Internal Medicine
DX: E10.29 Type 1 diabetes mellitus with other diabetic kidney complication (principal); I10 Essential (primary) hypertension; E27.1 Primary adrenocortical insufficiency
CPT/HCPCS: 80053; 84145

== ENCOUNTER 2023-06-17 19:47 | Emergency (ER) | payer OTHER, MEDICARE ==
[~2023-06-17] VITALS: Ht 152.4 cm; Wt 45.4 kg
[2023-06-17 21:22] LABS: BASOPHILS ABSOLUTE AUTO 0.08 K/mm3 (0.00-0.23); BASOPHILS PERCENT AUTO 1 % (0-2); EOSINOPHILS ABSOLUTE AUTO 0.43 K/mm3 (0.00-0.68); EOSINOPHILS PERCENT AUTO 4 % (0-6); Hematocrit 31.7 % (33.0-51.0); Hemoglobin 11.4 g/dL (11.5-16.0); IMMATURE GRAN ABSOLUTE AUTO 0.03 K/mm3 (0.00-0.10); IMMATURE GRAN PERCENT AUTO 0 % (0-1); LYMPHOCYTES ABSOLUTE AUTO 2.27 K/mm3 (0.84-5.20); LYMPHOCYTES PERCENT AUTO 21 % (21-46); MONOCYTES ABSOLUTE AUTO 0.88 K/mm3 (0.16-1.47); MONOCYTES PERCENT AUTO 8 % (4-13); Mean Corpuscular HGB 32.9 pg (26.0-34.0); Mean Corpuscular Volume 91 fL (80-100); Mean Platelet Volume 8.9 fL (9.1-12.4); NEUTROPHILS ABSOLUTE AUTO 7.41 K/mm3 (1.96-9.15); NEUTROPHILS PERCENT AUTO 67 % (41-73); Platelet Count 370 K/mm3 (150-400); RDW Coefficient Variation 12.4 % (11.7-14.2); RDW Standard Deviation 41.5 fL (35.1-46.3); Red Blood Cell Count 3.47 M/mm3 (3.80-5.20)
[2023-06-17 21:46] LABS: Albumin, Blood 3.1 g/dL (3.4-5.0); Albumin/Globulin Ratio 0.9 (0.8-1.8); Bilirubin, Total 0.2 mg/dL (0.1-1.0); Bun/Creatinine Ratio 25.4 (12.0-20.0); Calcium, Blood 8.3 mg/dL (8.5-10.1); Creatinine, Blood 0.55 mg/dL (0.40-1.00); Globulin, Blood 3.5 g/dL (2.2-4.0); Potassium, Blood 4.1 mmol/L (3.5-5.5); Total Protein, Blood 6.6 g/dL (6.4-8.2)
[2023-06-17 23:55] LABS: Source, Urine Clean Catch
[2023-06-18 00:24] LABS: Magnesium, Blood 1.9 mg/dL (1.6-2.4); Phosphorus, Blood 3.6 mg/dL (2.5-4.9); Thyroid Stimulating Hormone 6.59 uIU/mL (0.360-4.800)
[2023-06-18 02:06] LABS: Bilirubin, Urine Neg (Neg); Blood, Urine Neg (Neg); Glucose Qualitative, Urine 3+ (Neg); Ketones, Urine Neg (Neg); Leukocyte Esterase, Urine Neg (Neg); Nitrite, Urine Neg (Neg); Protein, Urine 3+ (Neg); Specific Gravity, Urine 1.015 (1.003-1.022); Urobilinogen, Urine NORM (Normal)
[2023-06-18 02:16] LABS: Appearance, Urine Clear (Clear); Color, Urine Yellow (P-Yellow)
[2023-06-18 02:17] LABS: Bacteria Mod /hpf; Red Blood Cells, Urine 0-2 /hpf (0-2); Squamous Epithelial Cells Few /hpf (Few)
[2023-06-18 02:18] LABS: Mucus Light (0-Heavy)
[2023-06-18 02:30] VITALS: BP 125/74
== END 2023-06-18 04:39 | disposition home or self-care (01) ==
LOC: ER 19:47
PROVIDERS: Emergency Medicine; Student in an Organized Health Care Education/Training Program
DX: E10.649 Type 1 diabetes mellitus with hypoglycemia without coma (principal); I10 Essential (primary) hypertension; E86.0 Dehydration; E87.1 Hypo-osmolality and hyponatremia; Z88.8 Allergy status to other drugs, medicaments and biological substances; Z88.5 Allergy status to narcotic agent; Z79.899 Other long term (current) drug therapy; Z79.4 Long term (current) use of insulin; Z96.41 Presence of insulin pump (external) (internal); Z79.02 Long term (current) use of antithrombotics/antiplatelets
CPT/HCPCS: 80053; 81001; 82947; 83735; 84100; 84443; 84484; 85025; 93005; 93010; 96360; 99284-25; J1815; J7030

== ENCOUNTER 2023-08-07 10:48 | Emergency (ER) | payer OTHER, MEDICARE ==
[~2023-08-07] VITALS: Ht 162.6 cm; Wt 63.0 kg
[2023-08-07 11:30] LABS: BASOPHILS ABSOLUTE AUTO 0.08 K/mm3 (0.00-0.23); BASOPHILS PERCENT AUTO 2 % (0-2); EOSINOPHILS ABSOLUTE AUTO 0.16 K/mm3 (0.00-0.68); EOSINOPHILS PERCENT AUTO 3 % (0-6); Hematocrit 31.1 % (33.0-51.0); Hemoglobin 11.4 g/dL (11.5-16.0); IMMATURE GRAN ABSOLUTE AUTO 0.02 K/mm3 (0.00-0.10); IMMATURE GRAN PERCENT AUTO 0 % (0-1); LYMPHOCYTES ABSOLUTE AUTO 1.17 K/mm3 (0.84-5.20); LYMPHOCYTES PERCENT AUTO 22 % (21-46); MONOCYTES ABSOLUTE AUTO 0.56 K/mm3 (0.16-1.47); MONOCYTES PERCENT AUTO 10 % (4-13); Mean Corpuscular HGB 32.3 pg (26.0-34.0); Mean Corpuscular HGB Conc 36.7 g/dL (31.5-36.5); Mean Corpuscular Volume 88 fL (80-100); Mean Platelet Volume 8.9 fL (9.1-12.4); NEUTROPHILS ABSOLUTE AUTO 3.45 K/mm3 (1.96-9.15); NEUTROPHILS PERCENT AUTO 63 % (41-73); Platelet Count 400 K/mm3 (150-400); RDW Coefficient Variation 11.7 % (11.7-14.2); RDW Standard Deviation 37.7 fL (35.1-46.3); Red Blood Cell Count 3.53 M/mm3 (3.80-5.20); White Blood Cell Count 5.44 K/mm3 (4.00-11.30)
[2023-08-07 12:04] LABS: Albumin, Blood 3.5 g/dL (3.4-5.0); Albumin/Globulin Ratio 0.9 (0.8-1.8); Bilirubin, Total 0.6 mg/dL (0.1-1.0); Bun/Creatinine Ratio 27.9 (12.0-20.0); Calcium, Blood 9.1 mg/dL (8.5-10.1); Creatinine, Blood 0.72 mg/dL (0.40-1.00); Globulin, Blood 3.8 g/dL (2.2-4.0); Total Protein, Blood 7.3 g/dL (6.4-8.2)
[2023-08-07 13:00] VITALS: BP 118/64
== END 2023-08-07 13:41 | disposition home or self-care (01) ==
LOC: ER 10:48
PROVIDERS: Emergency Medicine
DX: I95.9 Hypotension, unspecified (principal); E10.9 Type 1 diabetes mellitus without complications; I10 Essential (primary) hypertension; E27.1 Primary adrenocortical insufficiency; F17.290 Nicotine dependence, other tobacco product, uncomplicated; Z88.8 Allergy status to other drugs, medicaments and biological substances; Z88.6 Allergy status to analgesic agent; Z88.5 Allergy status to narcotic agent; Z79.52 Long term (current) use of systemic steroids; Z79.899 Other long term (current) drug therapy; Z79.82 Long term (current) use of aspirin; Z79.02 Long term (current) use of antithrombotics/antiplatelets
CPT/HCPCS: 80053; 84484; 85025; 93005; 93010; 99285-25

== ENCOUNTER → 2023-11-12 | Outpatient (CLI) | payer OTHER, MEDICARE ==
[~2023-11-12] MED LIST changes: +ASPI325 PO; +ASPI81CH PO; -Aspirin EC81 MG PO; +FLONASE SENSIM5.9 M1; +GLUCAGON EMERGEN1 MG IM; +LEVO-T50 MC1 PO; +MAGNESIUM OXID500 MG PO; +PROZAC40 MG PO; +SODCHL1 PO; +Ventolin/Prove6.7 GM INH
[2023-11-12 13:18] LABS: BASOPHILS ABSOLUTE AUTO 0.06 K/mm3 (0.00-0.23); BASOPHILS PERCENT AUTO 1 % (0-2); EOSINOPHILS ABSOLUTE AUTO 0.21 K/mm3 (0.00-0.68); EOSINOPHILS PERCENT AUTO 2 % (0-6); Hemoglobin 10.7 g/dL (11.5-16.0); IMMATURE GRAN ABSOLUTE AUTO 0.05 K/mm3 (0.00-0.10); IMMATURE GRAN PERCENT AUTO 0 % (0-1); LYMPHOCYTES ABSOLUTE AUTO 1.73 K/mm3 (0.84-5.20); LYMPHOCYTES PERCENT AUTO 15 % (21-46); MONOCYTES ABSOLUTE AUTO 0.63 K/mm3 (0.16-1.47); MONOCYTES PERCENT AUTO 5 % (4-13); Mean Corpuscular HGB 31.4 pg (26.0-34.0); Mean Corpuscular HGB Conc 35.7 g/dL (31.5-36.5); Mean Corpuscular Volume 88 fL (80-100); Mean Platelet Volume 9.9 fL (9.1-12.4); NEUTROPHILS ABSOLUTE AUTO 9.22 K/mm3 (1.96-9.15); NEUTROPHILS PERCENT AUTO 78 % (41-73); Platelet Count 331 K/mm3 (150-400); RDW Coefficient Variation 12.4 % (11.7-14.2); Red Blood Cell Count 3.41 M/mm3 (3.80-5.20)
[2023-11-12 13:33] LABS: Albumin, Blood 3.1 g/dL (3.4-5.0); Albumin/Globulin Ratio 0.9 (0.8-1.8); Bilirubin, Total 0.7 mg/dL (0.1-1.0); Bun/Creatinine Ratio 28.2 (12.0-20.0); Calcium, Blood 8.6 mg/dL (8.5-10.1); Creatinine, Blood 0.85 mg/dL (0.40-1.00); Globulin, Blood 3.6 g/dL (2.2-4.0); Potassium, Blood 4.9 mmol/L (3.5-5.5); Total Protein, Blood 6.7 g/dL (6.4-8.2)
== END ==
LOC: LAB SHORT 13:10 → LAB 13:10
PROVIDERS: Physician Assistant Medical
DX: I95.9 Hypotension, unspecified (principal)
CPT/HCPCS: 80053; 85025

== ENCOUNTER 2024-05-20 03:17 | Emergency (ER) | payer OTHER, MEDICARE ==
[~2024-05-20] VITALS: Ht 162.6 cm; Wt 63.5 kg
[~2024-05-20 03:17] MED LIST changes: +ALBU2.5V5 INH; +FLUDROCORTISON0.1 M1; +GVOKE HYPO1 MG/0.21 SC; +Isosorbide Mono30 MG PO; +LOSA50 PO
[2024-05-20] MEDS ORDERED: FentaNYL Citrate 50 MCG/ML 2 ML Injection IV ONE (03:30)
[2024-05-20 03:47] LABS: BASOPHILS ABSOLUTE AUTO 0.09 K/mm3 (0.00-0.23); BASOPHILS PERCENT AUTO 1 % (0-2); EOSINOPHILS ABSOLUTE AUTO 0.35 K/mm3 (0.00-0.68); EOSINOPHILS PERCENT AUTO 4 % (0-6); Hemoglobin 12.3 g/dL (11.5-16.0); IMMATURE GRAN ABSOLUTE AUTO 0.03 K/mm3 (0.00-0.10); IMMATURE GRAN PERCENT AUTO 0 % (0-1); LYMPHOCYTES ABSOLUTE AUTO 2.69 K/mm3 (0.84-5.20); LYMPHOCYTES PERCENT AUTO 30 % (21-46); MONOCYTES ABSOLUTE AUTO 0.79 K/mm3 (0.16-1.47); MONOCYTES PERCENT AUTO 9 % (4-13); Mean Corpuscular HGB 31.8 pg (26.0-34.0); Mean Corpuscular HGB Conc 36.2 g/dL (31.5-36.5); Mean Corpuscular Volume 88 fL (80-100); Mean Platelet Volume 9.3 fL (9.1-12.4); NEUTROPHILS ABSOLUTE AUTO 5.08 K/mm3 (1.96-9.15); NEUTROPHILS PERCENT AUTO 56 % (41-73); Platelet Count 423 K/mm3 (150-400); RDW Coefficient Variation 13.2 % (11.7-14.2); RDW Standard Deviation 42.5 fL (35.1-46.3); Red Blood Cell Count 3.87 M/mm3 (3.80-5.20); White Blood Cell Count 9.03 K/mm3 (4.00-11.30)
[2024-05-20 04:24] LABS: Albumin, Blood 3.7 g/dL (3.4-5.0); Albumin/Globulin Ratio 0.9 (0.8-1.8); Bilirubin, Total 0.4 mg/dL (0.1-1.0); Bun/Creatinine Ratio 25.4 (12.0-20.0); Calcium, Blood 9.3 mg/dL (8.5-10.1); Creatinine, Blood 0.55 mg/dL (0.40-1.00); Globulin, Blood 3.9 g/dL (2.2-4.0); Potassium, Blood 3.9 mmol/L (3.5-5.5); Total Protein, Blood 7.6 g/dL (6.4-8.2)
[2024-05-20 04:30] VITALS: BP 137/59
[2024-05-20] MEDS ORDERED: Ultram50 MG PO (04:59)
[2024-05-20] MEDS ORDERED: LIDO700A20 TOP (04:59)
[2024-05-20] MEDS ORDERED: Lidocaine 4% 1 Patch TOP ONE (05:00)
== END 2024-05-20 05:21 | disposition home or self-care (01) ==
LOC: ER 03:17
PROVIDERS: Emergency Medicine
DX: S22.42XA Multiple fractures of ribs, left side, initial encounter for closed fracture (principal); E10.9 Type 1 diabetes mellitus without complications; I10 Essential (primary) hypertension; I25.10 Atherosclerotic heart disease of native coronary artery without angina pectoris; E78.5 Hyperlipidemia, unspecified; K21.9 Gastro-esophageal reflux disease without esophagitis; H81.09 Meniere's disease, unspecified ear; E27.1 Primary adrenocortical insufficiency; Z88.8 Allergy status to other drugs, medicaments and biological substances; Z88.5 Allergy status to narcotic agent; Z88.6 Allergy status to analgesic agent; Z79.4 Long term (current) use of insulin; Z79.82 Long term (current) use of aspirin; Z79.890 Hormone replacement therapy; Z79.899 Other long term (current) drug therapy; W01.0XXA Fall on same level from slipping, tripping and stumbling without subsequent striking against object, initial encounter; Y93.01 Activity, walking, marching and hiking
CPT/HCPCS: 71260; 74177; 80053; 85025; 96374-59; 99284-25; A9270; J3010; Q9967

== ENCOUNTER → 2024-06-11 | Outpatient (CLI) | payer OTHER, MEDICARE ==
[~2024-06-11] MED LIST changes: +DILT180 PO; +LIDO700A20 TOP; +Ultram50 MG PO
[2024-06-11 15:18] LABS: Creatinine Urine 38.8 mg/dL (27.00-270.00); Protein, Urine Quantitative 52.9 mg/dL (0.0-11.9)
== END ==
LOC: LAB 13:14 → LAB SHORT 13:14
PROVIDERS: Internal Medicine Nephrology
DX: N18.2 Chronic kidney disease, stage 2 (mild) (principal); D63.1 Anemia in chronic kidney disease; N25.81 Secondary hyperparathyroidism of renal origin; E55.9 Vitamin D deficiency, unspecified; R76.9 Abnormal immunological finding in serum, unspecified; R94.5 Abnormal results of liver function studies; R94.6 Abnormal results of thyroid function studies
CPT/HCPCS: 81050; 82043; 82570; 84156

== ENCOUNTER 2024-12-17 07:27 | Observation (INO) | payer OTHER, MEDICARE ==
[~2024-12-17] VITALS: Ht 193 cm; Wt 62.0 kg
[2024-12-17] MEDS ORDERED: PROAIR RESPICL90 MCG INH (08:04)
[2024-12-17] MEDS ORDERED: Aspirin325 MG PO (08:04)
[2024-12-17] MEDS ORDERED: CLOP75 PO (08:07)
[2024-12-17] MEDS ORDERED: DOXA2 PO (08:08)
[2024-12-17 08:09] LABS: BASOPHILS PERCENT AUTO 2 % (0-2); EOSINOPHILS ABSOLUTE AUTO 0.35 K/mm3 (0.00-0.68); EOSINOPHILS PERCENT AUTO 5 % (0-6); Hematocrit 33.3 % (33.0-51.0); Hemoglobin 12.2 g/dL (11.5-16.0); IMMATURE GRAN ABSOLUTE AUTO 0.02 K/mm3 (0.00-0.10); IMMATURE GRAN PERCENT AUTO 0 % (0-1); LYMPHOCYTES ABSOLUTE AUTO 2.18 K/mm3 (0.84-5.20); LYMPHOCYTES PERCENT AUTO 34 % (21-46); MONOCYTES ABSOLUTE AUTO 0.67 K/mm3 (0.16-1.47); MONOCYTES PERCENT AUTO 10 % (4-13); Mean Corpuscular HGB 33.8 pg (26.0-34.0); Mean Corpuscular HGB Conc 36.6 g/dL (31.5-36.5); Mean Corpuscular Volume 92 fL (80-100); Mean Platelet Volume 9.3 fL (9.1-12.4); NEUTROPHILS ABSOLUTE AUTO 3.17 K/mm3 (1.96-9.15); NEUTROPHILS PERCENT AUTO 49 % (41-73); Platelet Count 411 K/mm3 (150-400); RDW Coefficient Variation 11.9 % (11.7-14.2); Red Blood Cell Count 3.61 M/mm3 (3.80-5.20); White Blood Cell Count 6.49 K/mm3 (4.00-11.30)
[2024-12-17] MEDS ORDERED: Flonase 0.05% N16 GM (08:09)
[2024-12-17] MEDS ORDERED: Ondansetron HCl 2 MG / ML 2ML Vial IV ONE (08:10)
[2024-12-17] MEDS ORDERED: Lactated Ringer's 1,000 ML IV ONE (08:10)
[2024-12-17] MEDS ORDERED: A-HYDROCORT100 M1 (08:11)
[2024-12-17] MEDS ORDERED: INSULANI SC (08:12)
[2024-12-17] MEDS ORDERED: IPRAT-ALBUT 0.5-3 ML INH (08:13)
[2024-12-17] MEDS ORDERED: Pentoxifylline400 MG PO (08:14)
[2024-12-17] MEDS ORDERED: PRED5 PO (08:14)
[2024-12-17] MEDS ORDERED: SODCHL1 PO (08:15)
[2024-12-17 08:23] LABS: Base Excess Venous -9.7 mmol/L; Bicarbonate Venous 18.7 mmol/L (24.0-30.0); PCO2 Venous 18.5 mmHg (38-42); pH Blood Venous 7.48 (7.34-7.37)
[2024-12-17 09:47] LABS: Albumin, Blood 3.4 g/dL (3.4-5.0); Beta-hydroxybutyrate 37.4 mg/dL (0.2-2.8); Bilirubin, Total 0.9 mg/dL (0.1-1.0); Bun/Creatinine Ratio 26.7 (12.0-20.0); Calcium, Blood 8.9 mg/dL (8.5-10.1); Creatinine, Blood 0.6 mg/dL (0.40-1.00); Globulin, Blood 3.4 g/dL (2.2-4.0); Potassium, Blood 3.3 mmol/L (3.5-5.5); Total Protein, Blood 6.8 g/dL (6.4-8.2)
[2024-12-17] MEDS ORDERED: NS 1,000 ML IV SCH (10:05)
[2024-12-17] MEDS ORDERED: Potassium Chloride 40 MEQ in NS 250 ML IV ONE (10:10)
[2024-12-17 10:28] LABS: Source, Urine Clean Catch
[2024-12-17 10:33] LABS: Appearance, Urine Hazy (Clear); Bilirubin, Urine Neg (Neg); Blood, Urine Neg (Neg); Color, Urine Yellow (P-Yellow); Glucose Qualitative, Urine 4+ (Neg); Ketones, Urine 4+ (Neg); Leukocyte Esterase, Urine Neg (Neg); Nitrite, Urine Neg (Neg); Protein, Urine 2+ (Neg); Specific Gravity, Urine 1.015 (1.003-1.022); Urobilinogen, Urine NORM (Normal)
[2024-12-17] MEDS ORDERED: Ondansetron 4 MG TAB PO PRN (10:35)
[2024-12-17 10:43] LABS: Bacteria Rare /hpf; Mucus Light (0-Heavy); Red Blood Cells, Urine Not Seen /hpf (0-2); Squamous Epithelial Cells Mod /hpf (Few); White Blood Cells, Urine 0-2 /hpf (0-5)
[2024-12-17] MEDS ORDERED: Albuterol 2.5 MG/3 ML VIAL INH PRN (11:20)
[2024-12-17 12:45] VITALS: BP 126/47
[2024-12-17] MEDS ORDERED: Hydrocortisone 10 MG Tab PO SCH ×4 (13:00→18:00)
[2024-12-17] MEDS ORDERED: Lactated Ringer's 1,000 ML IV SCH (13:00)
[2024-12-17] MEDS ORDERED: ERGO50000 PO (13:41)
[2024-12-17] MEDS ORDERED: Isosorbide Mono30 MG PO (13:55)
[2024-12-17] MEDS ORDERED: Gabapentin 300 MG Cap PO SCH (14:00)
[2024-12-17] MEDS ORDERED: Insulin Human Lispro 100 Units/ML 3ML Syringe SC SCH ×2 (16:30→17:30)
[2024-12-17] MEDS ORDERED: Insulin Glargine-Yfgn 100 Unit/mL 3 ML SYR SC SCH ×2 (17:00→18:00)
--- NOTE | 2024-12-17 18:00 | NUR ---
PCU Admit / End of Shift Pt brought to PCU-11 by callie from ER. Pt A&O x4. Pt slid over from [facility] to PCU bed d/t pt report of feeling dizzy. Pt otherwise reports independent w/ ambulation at baseline. Pt VSS. Spo2 > 92% on RA. Monitor showing SR, HR 70s-80s. Pt w/ insulin pump that is shut off but is monitoring glucose levels. CBGs 100s since arrival to PCU. Pt anticipating potential discharge home tomorrow.
[2024-12-17 19:12] LABS: Bun/Creatinine Ratio 23.7 (12.0-20.0); Calcium, Blood 8.7 mg/dL (8.5-10.1); Creatinine, Blood 0.51 mg/dL (0.40-1.00); Potassium, Blood 4.2 mmol/L (3.5-5.5)
[2024-12-17 20:10] VITALS: BP 147/61
[2024-12-17] MEDS ORDERED: Diltiazem HCl 180 MG Cap.CD PO SCH (21:00)
[2024-12-17] MEDS ORDERED: Sodium Chloride 1 GM TAB PO SCH (21:00)
[2024-12-17] MEDS ORDERED: Famotidine 20 MG Tab PO SCH (21:00)
[2024-12-17] MEDS ORDERED: Atorvastatin 40 MG Tab PO SCH (21:00)
[2024-12-17] MEDS ORDERED: Doxazosin Mesylate 2 MG Tab PO SCH (21:00)
--- NOTE | 2024-12-17 23:39 | NUR ---
ASSUMPTION OF CARE PT A&O X4, CALM, COOPERATIVE TO CARE. HR IN THE 70'S, SINUS RHYTHM. SHE DENIES CP/PRESSURE, NUMB/TINGLING. SBP STABLE. O2 >92% ON RA. PT UP TO BSC FOR BATHROOM. SHE HAS INSULIN PUMP IN PLACE, INSULIN PUMP TAKING BLOOD SUGAR BUT NOT GIVING INSULIN. PT HAS AC/Q4 BG CHECKS. PT 1999 BG WAS 245, CALL PLACED TO PROVIDER TO CHECK IF NIGHT TIME INSULIN COVERAGE WAS WANTED, RESIDENT WANTS NOTIFIED IF BG INCREASES, NO NEW ORDERS AT THIS TIME. PT RESTING IN BED, CALL LIGHT IN REACH.
--- NOTE | 2024-12-18 00:23 | NUR ---
TRANSFER OF CARE PT A&O X4. HR IN THE 70'S, SR. O2 >92% ON RA. VSS. RN JUL TO TAKE OVER CARE. REPORT GIVEN TO ARTEM.
[2024-12-18 00:30] VITALS: BP 143/50
[2024-12-18 04:23] VITALS: BP 149/55
--- NOTE | 2024-12-18 05:01 | NUR ---
SHIFT SUMMARY PATIENT HAS APPEARED TO SLEEP COMFORTABLY TONIGHT. SHE IS [place] BUT HAS LEFT HER HEARING AIDS AT HOME. BLOOD GLUCOSE LEVELS ARE BEING MONITORED EVERY 4 HOURS. LAST BLOOD GLUCOSE WAS 167. LR IS INFUSING WITHOUT COMPLICATIONS. PATIENT IS ORIENTED X4. SHE HAS HER CALL LIGHT WITHIN REACH AND HAS BEEN INSTRUCTED TO CALL WITH ANY REQUESTS OR NEEDS. SAFETY PRECAUTIONS ARE BEING MAINTAINED.
[2024-12-18 05:12] LABS: BASOPHILS ABSOLUTE AUTO 0.07 K/mm3 (0.00-0.23); BASOPHILS PERCENT AUTO 2 % (0-2); EOSINOPHILS ABSOLUTE AUTO 0.29 K/mm3 (0.00-0.68); EOSINOPHILS PERCENT AUTO 6 % (0-6); Hematocrit 28.9 % (33.0-51.0); Hemoglobin 10.5 g/dL (11.5-16.0); IMMATURE GRAN ABSOLUTE AUTO 0.01 K/mm3 (0.00-0.10); IMMATURE GRAN PERCENT AUTO 0 % (0-1); LYMPHOCYTES ABSOLUTE AUTO 1.71 K/mm3 (0.84-5.20); LYMPHOCYTES PERCENT AUTO 36 % (21-46); MONOCYTES ABSOLUTE AUTO 0.67 K/mm3 (0.16-1.47); MONOCYTES PERCENT AUTO 14 % (4-13); Mean Corpuscular HGB 33.5 pg (26.0-34.0); Mean Corpuscular HGB Conc 36.3 g/dL (31.5-36.5); Mean Corpuscular Volume 92 fL (80-100); Mean Platelet Volume 9.3 fL (9.1-12.4); NEUTROPHILS ABSOLUTE AUTO 2.05 K/mm3 (1.96-9.15); NEUTROPHILS PERCENT AUTO 43 % (41-73); Platelet Count 360 K/mm3 (150-400); RDW Coefficient Variation 11.8 % (11.7-14.2); RDW Standard Deviation 39.7 fL (35.1-46.3); Red Blood Cell Count 3.13 M/mm3 (3.80-5.20)
[2024-12-18 05:49] LABS: Albumin, Blood 2.9 g/dL (3.4-5.0); Albumin/Globulin Ratio 0.9 (0.8-1.8); Bilirubin, Total 0.6 mg/dL (0.1-1.0); Bun/Creatinine Ratio 11.9 (12.0-20.0); Calcium, Blood 8.3 mg/dL (8.5-10.1); Creatinine, Blood 0.51 mg/dL (0.40-1.00); Globulin, Blood 3.2 g/dL (2.2-4.0); Potassium, Blood 3.4 mmol/L (3.5-5.5); Total Protein, Blood 6.1 g/dL (6.4-8.2)
[2024-12-18] MEDS ORDERED: Levothyroxine Sodium 0.05 MG Tab PO SCH (06:00)
[2024-12-18] MEDS ORDERED: Potassium Chloride 20 MEQ TabCR PO ONE (07:00)
[2024-12-18 07:12] VITALS: BP 163/69
[2024-12-18] MEDS ORDERED: Enoxaparin 40 MG/0.4 ML SYR SC SCH (09:00)
[2024-12-18] MEDS ORDERED: Clopidogrel Bisulfate 75 MG Tab PO SCH (09:00)
[2024-12-18] MEDS ORDERED: FLUoxetine HCL 20 MG CAP PO SCH (09:00)
[2024-12-18] MEDS ORDERED: Fludrocortisone Acetate 0.1 MG Tab PO SCH (09:00)
[2024-12-18] MEDS ORDERED: PredniSONE 10 MG Tab PO SCH (09:00)
[2024-12-18] MEDS ORDERED: Aspirin 325 MG Tab PO SCH (09:00)
[2024-12-18] MEDS ORDERED: ASPI81CH PO (11:52)
--- NOTE | 2024-12-18 13:08 | NUR ---
Discharge Home Pt A&Ox4. VSS. Spo2 > 92% on RA. Monitor showing SR, HR 70s. CBGs stable. w/ order for discharge home w/ insulin coverage until pt able to get home insulin pump functioning again. Discharge instructions reviewed w/ pt & sent home w/ pt. PIV removed. Pt taken out in wheelchair w/ belongings @ approx 1200.
== END 2024-12-18 12:17 | disposition home or self-care (01) ==
LOC: ER 07:27 → PCU 07:28 → ER 12:25 → PCU 13:07
PROVIDERS: Student in an Organized Health Care Education/Training Program; ADMIT Hospitalist
DX: E10.65 Type 1 diabetes mellitus with hyperglycemia (principal); E87.1 Hypo-osmolality and hyponatremia; E87.6 Hypokalemia; E27.1 Primary adrenocortical insufficiency; I10 Essential (primary) hypertension; E03.9 Hypothyroidism, unspecified; I25.10 Atherosclerotic heart disease of native coronary artery without angina pectoris; K21.9 Gastro-esophageal reflux disease without esophagitis; Z88.8 Allergy status to other drugs, medicaments and biological substances; Z88.5 Allergy status to narcotic agent; Z87.891 Personal history of nicotine dependence; Z96.41 Presence of insulin pump (external) (internal); Z79.899 Other long term (current) drug therapy; Z79.890 Hormone replacement therapy; Z79.82 Long term (current) use of aspirin
CPT/HCPCS: 36415; 71046; 80048; 80053; 81001; 82010; 82803; 82947; 85025; 93005; 93010; 94762; 96361; 96365; 96366; 96372; 96375; 99285-25; A9270; G0378; J1650; J1815; J2405; J3480; J7030; J7050; J7120; J7512

== ENCOUNTER → 2024-12-22 | Outpatient (CLI) | payer OTHER, MEDICARE ==
[~2024-12-22] MED LIST changes: +A-HYDROCORT100 M1; +Aspirin325 MG PO; +DOXA2 PO; +Flonase 0.05% N16 GM; +INSULANI SC; +IPRAT-ALBUT 0.5-3 ML INH; +PRED5 PO; +PROAIR RESPICL90 MCG INH
[2024-12-22 17:52] LABS: BASOPHILS PERCENT AUTO 2 % (0-2); EOSINOPHILS ABSOLUTE AUTO 0.41 K/mm3 (0.00-0.68); EOSINOPHILS PERCENT AUTO 6 % (0-6); Hematocrit 32.3 % (33.0-51.0); Hemoglobin 11.6 g/dL (11.5-16.0); IMMATURE GRAN ABSOLUTE AUTO 0.02 K/mm3 (0.00-0.10); IMMATURE GRAN PERCENT AUTO 0 % (0-1); LYMPHOCYTES ABSOLUTE AUTO 1.64 K/mm3 (0.84-5.20); LYMPHOCYTES PERCENT AUTO 25 % (21-46); MONOCYTES ABSOLUTE AUTO 0.84 K/mm3 (0.16-1.47); MONOCYTES PERCENT AUTO 13 % (4-13); Mean Corpuscular HGB 33.7 pg (26.0-34.0); Mean Corpuscular HGB Conc 35.9 g/dL (31.5-36.5); Mean Corpuscular Volume 94 fL (80-100); Mean Platelet Volume 9.9 fL (9.1-12.4); NEUTROPHILS ABSOLUTE AUTO 3.62 K/mm3 (1.96-9.15); NEUTROPHILS PERCENT AUTO 55 % (41-73); Platelet Count 409 K/mm3 (150-400); RDW Coefficient Variation 11.9 % (11.7-14.2); RDW Standard Deviation 40.8 fL (35.1-46.3); Red Blood Cell Count 3.44 M/mm3 (3.80-5.20); White Blood Cell Count 6.63 K/mm3 (4.00-11.30)
[2024-12-22 19:00] LABS: Bun/Creatinine Ratio 23.5 (12.0-20.0); Calcium, Blood 9.1 mg/dL (8.5-10.1); Creatinine, Blood 0.55 mg/dL (0.40-1.00); Potassium, Blood 4.2 mmol/L (3.5-5.5)
== END ==
LOC: LAB SHORT 14:10 → LAB 14:10
PROVIDERS: Internal Medicine
DX: E27.1 Primary adrenocortical insufficiency (principal)
CPT/HCPCS: 80048; 85025

== ENCOUNTER 2025-01-19 13:47 | Emergency (ER) | payer OTHER, MEDICARE ==
[~2025-01-19] VITALS: Ht 162.6 cm; Wt 59.9 kg
[2025-01-19 14:56] LABS: BASOPHILS ABSOLUTE AUTO 0.07 K/mm3 (0.00-0.23); BASOPHILS PERCENT AUTO 1 % (0-2); EOSINOPHILS ABSOLUTE AUTO 0.25 K/mm3 (0.00-0.68); EOSINOPHILS PERCENT AUTO 4 % (0-6); Hematocrit 29.2 % (33.0-51.0); Hemoglobin 10.5 g/dL (11.5-16.0); IMMATURE GRAN ABSOLUTE AUTO 0.03 K/mm3 (0.00-0.10); IMMATURE GRAN PERCENT AUTO 1 % (0-1); LYMPHOCYTES ABSOLUTE AUTO 1.90 K/mm3 (0.84-5.20); LYMPHOCYTES PERCENT AUTO 34 % (21-46); MONOCYTES ABSOLUTE AUTO 0.46 K/mm3 (0.16-1.47); MONOCYTES PERCENT AUTO 8 % (4-13); Mean Corpuscular HGB Conc 36.0 g/dL (31.5-36.5); Mean Corpuscular Volume 94 fL (80-100); NEUTROPHILS ABSOLUTE AUTO 2.91 K/mm3 (1.96-9.15); NEUTROPHILS PERCENT AUTO 52 % (41-73); NRBC ABSOLUTE 0.00 K/mm3 (0.00-0.02); NRBC Auto 0.0 /100 WBC (0.0-0.2); Platelet Count 325 K/mm3 (150-400); RDW Coefficient Variation 12.0 % (11.7-14.2); RDW Standard Deviation 41.3 fL (35.1-46.3)
[2025-01-19] MEDS ORDERED: Hydrocortisone10 MG PO (15:11)
[2025-01-19] MEDS ORDERED: HYDRA50 (15:13)
[2025-01-19 15:26] LABS: Alanine Aminotransfer (ALT/SGP 26.0 U/L (12-78); Albumin, Blood 3.1 g/dL (3.4-5.0); Albumin/Globulin Ratio 0.9 (0.8-1.8); Anion Gap 7.0 mmol/L (3-11); Aspartate Aminotrans (AST/SGOT 18.0 U/L (12-37); Bilirubin, Total 0.4 mg/dL (0.1-1.0); Blood Urea Nitrogen 12.0 mg/dL (8-24); CO2, Blood 28.0 mmol/L (21-32); Calcium, Blood 8.4 mg/dL (8.5-10.1); Chloride, Blood 102.0 mmol/L (98-108); Creatinine, Blood 0.56 mg/dL (0.40-1.00); Globulin, Blood 3.5 g/dL (2.2-4.0); Glucose, Blood 122.0 mg/dL (70-99); Potassium, Blood 3.8 mmol/L (3.5-5.5); Sodium, Blood 133.0 mmol/L (136-145); Total Protein, Blood 6.6 g/dL (6.4-8.2)
[2025-01-19 17:46] VITALS: BP 134/64
== END 2025-01-19 18:30 | disposition home or self-care (01) ==
LOC: ER 13:47
PROVIDERS: Student in an Organized Health Care Education/Training Program
DX: R55 Syncope and collapse (principal); E10.9 Type 1 diabetes mellitus without complications; I10 Essential (primary) hypertension; K21.9 Gastro-esophageal reflux disease without esophagitis; Z90.89 Acquired absence of other organs; Z88.8 Allergy status to other drugs, medicaments and biological substances; Z79.899 Other long term (current) drug therapy
CPT/HCPCS: 70450; 80053; 84484; 85025; 93005; 93010; 99284-25; A9270